=== PATIENT | male | born 1960 | race Caucasian/White ===

== ENCOUNTER 2023-01-06 09:34 | Day surgery (SDC) | payer BC, SELFPAY ==
[2022-12-16 13:09] VITALS: BMI 30.7
[2023-01-06 10:39] VITALS: BP 148/70; PULSE 67; RESP 18; TEMP 36.5; O2SAT 98
--- NOTE | 2023-01-06 11:01 | EXP.ANES.CKL ---
[facility] Disclaimer: The information contained in this section may have been updated after the patient was seen, as this information can be updated by other users. Medical History Colon polyps Surgical History History of colonoscopy Family History Other Family history of diabetes mellitus type II Social History Smoking Status: Former smoker how long ago did patient quit smokin years alcohol intake: current substance use type: marijuana current occupational status: employed Travel in the last 8 weeks: None household members: spouse housing: house lives independently: Yes marital status: education level: college caffeine: No special stephanie needs: No agree to transfusion: No do you feel safe at home: Yes victim of physical abuse: No victim of emotional abuse: No victim of sexual abuse: No would you like helpful sources: No [facility] Anesthesia Checklist Patient Identification Patient Identification: Verbal (Name & ) Structural Data Admitted From: Home Planned Operative Procedure/s: colonoscopy Consent for Planned Operative Procedure(s) Verified: Yes Airway Assessment C-Spine Mobility Assessed: Yes TMJ Mobility Assessed: Yes Dentition: Good Dentition Neurological Assessment Level of Consciousness: Awake, Alert and Appropriate Anesthesia Plan Anesthesia Risk discussed: Yes Anesthesia Plan: Verified ASA Class: II Anesthesia Type: MAC
[2023-01-06 11:17] VITALS: O2SAT 98
--- NOTE | 2023-01-06 11:30 | HMH.SCOPE ---
Procedure: Date: 01/06/23 Patient Date of :: 1960 Procedure Performed:: Colonoscopy & biopsies Indications:: History of polyps Performing Provider:: Nafisa Nair MD Referring Provider:: Charli Beverly DO Sedation:: Propofol Procedure:: After placing the patient in the left lateral decubitus position, the colonoscopy was gently inserted into the rectum and under direct visualization advanced to the cecum which was identified by transillumination in the right lower quadrant, identification of the ileocecal valve, appendiceal orifice, and cecal strap. Color, texture, mucosa, and anatomy of the colon were carefully examined with the scope. Findings:: Anal canal: normal Rectum: normal Sigmoid colon: normal without polyps or inflammatory changes Descending colon: normal, small 5mm polyp identified and removed with forceps Splenic flexure: normal Transverse colon: normal without polyps or inflammatory changes Hepatic flexure: normal Ascending colon: normal without polyps or inflammatory changes Cecum: normal Terminal ileum: not visualized Impression: Polyp of descending colon Specimens:: Polyp Recommendations:: Follow up examination in about THREE-FIVE years or so, sooner if clinically indicated. Complications:: None Estimated blood obtained (mL): 0
[2023-01-06 11:32] VITALS: BP 123/70; PULSE 71; RESP 15; TEMP 37.1; O2SAT 95
[2023-01-06 11:42] VITALS: BP 115/61; PULSE 66; RESP 16; O2SAT 96
[2023-01-06 11:52] VITALS: BP 130/87; PULSE 60; RESP 17; O2SAT 97
[2023-01-06 12:05] VITALS: BP 139/70; PULSE 71; RESP 16; O2SAT 96
== END 2023-01-06 12:07 | disposition home or self-care (01) ==
PROVIDERS: PCP Internal Medicine; Visit Provider Internal Medicine Gastroenterology
PROC: 0DJD8ZZ Inspection of Lower Intestinal Tract, Via Natural or Artificial Opening Endoscopic (ICD-10-PCS; CPT 45378; principal; 2023-01-06 11:30)
DX: Z12.11 Encounter for screening for malignant neoplasm of colon (principal); D12.4 Benign neoplasm of descending colon; Z86.010 Personal history of colon polyps
CPT/HCPCS: 45378